=== PATIENT | male | born 1965 | race Caucasian/White ===

== ENCOUNTER 2016-07-28 07:35 | Day surgery (SDC) | payer BC ==
[~2016-07-28] VITALS: Ht 198.1 cm; Wt 127.3 kg
[2016-07-28] VITALS (11 sets, daily range): BP systolic 127–172; BP diastolic 84–99; PULSE 59–70
[2016-07-28 08:02] LABS: HEMATOCRIT 44.6 % (42.0-52.0); HEMOGLOBIN 15.5 g/dl (13.5-18.0); MEAN CELL VOLUME 88 fl (80.0-100.0); MEAN CORPUSCULAR HEMOGLOBIN 31 pg (27.0-31.0); MEAN CORPUSCULAR HGB CONC 35 g/dl (33.0-37.0); PLATELET COUNT 243 K/mm3 (130-400); RED BLOOD COUNT 5.08 M/mm3 (4.20-5.60); REDCELL DISTRIBUTION WIDTH-CV 12.2 % (11.5-14.5); WHITE BLOOD COUNT 7.9 K/mm3 (4.8-10.8)
[2016-07-28 08:12] LABS: PROTHROMBIN TIME 11.3 SECONDS (9.7-12.8)
[2016-07-28] MEDS ORDERED: TOPROL XL 25MG25 MG PO (08:21)
[2016-07-28] MEDS ORDERED: ASPIRIN 32325 MG/TAB PO (08:22)
[2016-07-28] MEDS ORDERED: NITROSTAT0.4 MG/TAB SL (08:26)
[2016-07-28] MEDS ORDERED: CLARITIN 1010 MG/TAB PO (08:26)
[2016-07-28 08:30] LABS: CALCIUM 9.4 mg/dL (8.4-10.2); CREATININE, serum 1.08 mg/dL (0.66-1.25)
[2016-07-28] MEDS ORDERED: LIPITOR 10MG10 MG PO (13:04)
== END 2016-07-28 15:35 | disposition home or self-care (01) ==
LOC: EUO 07:35
PROVIDERS: Internal Medicine Cardiovascular Disease
DX: I25.10 Atherosclerotic heart disease of native coronary artery without angina pectoris (principal); R07.9 Chest pain, unspecified; R94.39 Abnormal result of other cardiovascular function study; I10 Essential (primary) hypertension
CPT/HCPCS: C1760; C1894; J2250; J3010; Q9967